=== PATIENT | male | born 1970 | race Caucasian/White ===

== ENCOUNTER 2025-04-29 15:20 | Emergency (ER) | payer OTHER, SELFPAY ==
[2025-04-29 15:25] VITALS: BP 171/101; PULSE 74; RESP 16; TEMP 36.3; O2SAT 98; BMI 31.4
--- NOTE | 2025-04-29 15:55 | CRLHL7_ITS ---
For Patients: As a result of the Cures Act, medical imaging exams and procedure reports are released immediately into your electronic medical record. You may view this report before your referring provider. If you have questions, please contact your health care provider. Indication: Nail through finger close to PIP joint carpentry nail through finger, now removed. Technique: Three views of the right 2nd digit. Comparison: None. Findings: Moderate soft tissue swelling of the 2nd digit. No acute displaced fracture or malalignment. No unexpected radiopaque foreign body. Impression: No acute displaced fracture or malalignment. No unexpected radiopaque foreign body. Dictated by Jason Kenyon MD @ 04/29/2025 4:29:42 PM (Electronically Signed)
--- NOTE | 2025-04-29 16:28 | ED.UPPEXIN ---
HPI - Extremity Injury (Upper) General Date Seen: 04/29/25 Chief Complaint: Extremity Pain/Injury, Upper Stated Complaint: lac on rt thumb Time Seen by Provider: 04/29/25 15:28 Source: patient Mode of arrival: ambulatory Limitations: no limitations History of Present Illness HPI narrative: Patient is a 54-year-old male presenting to the emergency department for a nail through his right index finger. Diffuse have gone through the pad of the finger. Unsure if it is gone through any bone. He states he was using a nail gun when he accidentally did this. States his finger currently is throbbing. Denies any other injuries. This tetanus was 2021. No other concerns noted at this time. Related Data Home Medications ?Medication ?Instructions ?Recorded ?Confirmed atorvastatin 10 mg tablet 10 mg PO DAILY 04/29/25 04/29/25 lisinopril 10 mg tablet 10 mg PO DAILY 04/29/25 04/29/25 Allergies Allergy/AdvReac Type Severity Reaction Status Date / Time No Known Drug Allergies Allergy Verified 04/29/25 15:24 Review of Systems Narrative: Pertinent systems reviewed and were negative unless stated in HPI Exam Narrative: Exam Narrative: Const: Well-nourished, Well-developed, in moderate distress, 16 paul nail noted in his right index finger going just distal to the DIP up through the pad of the finger. Eyes: no conjunctival injection, and symmetrical lids HENT: Atraumatic external nose and ears. Moist mucous membranes. MSK:Extremities w/o deformity, Normal Active ROM Skin: Warm, Dry. No rashes or lesions. Neuro: Normal Muscle tone, No focal neurological deficits. Psych: Awake, Alert, & Oriented x3. Appropriate mood and affect. Const: Vital Signs, click to edit/add: Vital Signs - 24 hr 04/29/25 15:25 Temperature 97.3 F L Pulse Rate [Pulse Oximeter] 74 Respiratory Rate 16 Blood Pressure [Le ft Upper Arm] 171/101 H Pulse Oximetry 98 Course Vital Signs Vital signs: Initial Vital Signs Temperature 97.3 F L 04/29/25 15:25 Temperature Source Temporal Artery Scan 04/29/25 15:25 Pulse Rate 74 04/29/25 15:25 Pulse Rhythm Regular 04/29/25 15:25 Pulse Strength 3+ Normal 04/29/25 15:25 Respiratory Rate 16 04/29/25 15:25 Blood Pressure 171/101 H 04/29/25 15:25 Blood Pressure Mean 124 H 04/29/25 15:25 Blood Pressure Position Sitting 04/29/25 15:25 Pulse Oximetry 98 04/29/25 15:25 Vital Signs Temperature 97.3 F L 04/29/25 15:25 Pulse Rate 74 04/29/25 15:25 Respiratory Rate 16 04/29/25 15:25 Blood Pressure 171/101 H 04/29/25 15:25 Pulse Oximetry 98 04/29/25 15:25 Temperature 97.3 F L 04/29/25 15:25 Pulse Rate 74 04/29/25 15:25 Respiratory Rate 16 04/29/25 15:25 Blood Pressure 171/101 H 04/29/25 15:25 Pulse Oximetry 98 04/29/25 15:25 MDM - Extremity Injury (Upper) MDM Narrative Medical decision making narrative: Patient is a 54-year-old male presenting to emergency department for a nail going through his finger. The nail is on the volar aspect of the finger and goes through the skin just distal to the D IP and exits out will tip of the finger. Does not involve the nail bed at all. I do a digital nerve block with 6 mL of lidocaine. Patient's finger was numb do and was able to cut off the tip of the nail with a bolt color to make it smaller and then pulled out the rest of the nail using a pliers. He tolerated this well. Will do an x-ray to look for any fractures. X-ray interpreted by myself and Radiology shows no acute abnormalities. No signs of fracture or retained foreign body. He is doing well. The puncture wounds were left open scan to make sure they can drain if necessary. Will start him on antibiotics. Tetanus is up to date. He is doing well and is safe for discharge Diagnosis removal foreign body Imaging Data Right 2nd finger x-ray: Attestation: I have reviewed the pertinent imaging results. Radiologist's impression: No acute displaced fracture or malalignment. No unexpected radiopaque foreign body. Dictated by Jason Kenyon MD @ 04/29/2025 4:29:42 PM Discharge Plan Discharge Clinical Impression: Removal of foreign body from muscle of hand performed Patient Disposition: Home, Self-Care Condition: Improved Additional Instructions: Take the antibiotics as directed. This is prophylactic to make she does develop an infection. Return to emergency department for new or worsening symptoms. If you develop any of the following signs called Kanavel's Signs it could be a sign of flexor tenosynovitis and is an emergency that you need to return to emergency department immediately for -Pain with passive extension (often the first sign seen) -Percussion tenderness (tenderness over entire length of flexor tendon sheath) -Uniform swelling (symmetric finger swelling along length of the tendon sheath) -Flexion posture (flexed posture of involved digit at rest to minimize pain) Prescriptions: No Action atorvastatin 10 mg tablet 10 mg PO DAILY lisinopril 10 mg tablet 10 mg PO DAILY Follow Up/Referrals: Provider,Not a Local [Primary Care Provider, Family Practice] Stand Alone Forms: [facility] Info Instructions Procedures Foreign Body Removal Site: right and hand (Index finger) Description of foreign body: other (Nail) Sedation/Analgesia: none Technique: manual removal Confirmed by:: radiograph Complications: none Post-procedure exam: awake, alert Neurovascular: normal distal pulse, normal capillary fill and distal light touch sensation intact
[2025-04-29] MEDS: LIDOCAINE 1% MDV 6 ML INJECTION (16:46)
== END 2025-04-29 16:52 | disposition home or self-care (01) ==
PROVIDERS: Emergency Provider Student in an Organized Health Care Education/Training Program
DX: S61.240A Puncture wound with foreign body of right index finger without damage to nail, initial encounter (principal); W45.0XXA Nail entering through skin, initial encounter; W29.4XXA Contact with nail gun, initial encounter
CPT/HCPCS: 10120; 73140; 99283; 99284; J2003